=== PATIENT | female | born 1990 | race Caucasian/White ===

== ENCOUNTER 2016-08-15 21:49 | Inpatient (IN) | payer OTHER ==
[2016-08-16] MEDS ORDERED: Carboprost Tromethamine 250 MCG/1 ML Amp IM PRN (00:38)
[2016-08-16] MEDS ORDERED: Methylergonovine 0.2 MG/1 ML Amp IM PRN (00:38)
[2016-08-16] MEDS ORDERED: Lidocaine 1% 50 ML MDV INJECT PRN (00:38)
[2016-08-16] MEDS ORDERED: Sodium Chloride 0.9% 10 ML Syringe FLUSH PRN (00:38)
[2016-08-16] MEDS ORDERED: Butorphanol 1 MG/ML SDV IVPUSH PRN (00:38)
[2016-08-16] MEDS ORDERED: Nalbuphine 10 MG/1 ML Vial IVPUSH PRN (00:38)
[2016-08-16] MEDS ORDERED: Misoprostol 200 MCG Tab PO PRN (00:38)
[2016-08-16] MEDS ORDERED: Sodium Chloride 0.9% 2.5 ML Syringe FLUSH PRN (00:38)
[2016-08-16] MEDS ORDERED: Water For Irrigation,Sterile 1,000 ML Container IRR PRN (00:38)
[2016-08-16] MEDS ORDERED: Oxytocin/Lactated Ringers 30 UNIT/500 ML BAG IV SCH ×2 (00:45→05:00)
[2016-08-16] MEDS: Lactated Ringers 1,000 ML IV SCH ×4 (02:19→05:36)
[2016-08-16] MEDS ORDERED: Ropivacaine HCl/PF 100 ML ONE (03:54)
[2016-08-16] MEDS ORDERED: Ropivacaine 0.2% 2 MG/ML 20 ML SDV ONE (03:54)
[2016-08-16] MEDS ORDERED: fentaNYL 100 MCG/2 ML SDV ONE (03:54)
--- NOTE | 2016-08-16 04:45 | PCM.PREANE ---
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 Respiratory: Reports: no symptoms Cardiovascular: Reports: no symptoms GI: Reports: no symptoms Other: Reports: none - PHYSICAL ASSESSMENT Height: 1.72 m Weight: 78.471 kg NPO Status Date: 08/16/16 NPO Status Time: 04:40 ASA Class: 2 Mental Status: alert & oriented x3 Airway Class: Mallampati = 2 Dentition: Reports: normal dentition Thyro-Mental Finger Breadths: 3 Mouth Opening Finger Breadths: 3 (cl liquids) ROM/Head Extension: full Respiratory Status: lungs clear to auscultation bilaterally Cardiovascular Status: regular rate & rhythm, normal S1, S2, no murmur, blood pressure WNL - LAB Values: Laboratory Last Values WBC 12.33 K/uL (4.0-11.0) H 08/16/16 00:52 RBC 4.31 M/uL (4.30-5.90) 08/16/16 00:52 Hgb 13.3 g/dL (12.0-16.0) 08/16/16 00:52 Hct 39.3 % (36.0-46.0) 08/16/16 00:52 MCV 91.2 fL (80.0-98.0) 08/16/16 00:52 MCH 30.9 pg (27.0-32.0) 08/16/16 00:52 MCHC 33.8 g/dL (31.0-37.0) 08/16/16 00:52 RDW Std Deviation 42.8 fl (28.0-62.0) 08/16/16 00:52 RDW Coeff of Red 13 % (11.0-15.0) 08/16/16 00:52 Plt Count 178 K/uL (150-400) 08/16/16 00:52 MPV 10.70 fL (7.40-12.00) 08/16/16 00:52 Nucleated RBC % 0.0 /100WBC 08/16/16 00:52 Nucleated RBCs # 0 K/uL 08/16/16 00:52 Blood Type O POSITIVE 08/16/16 00:52 Antibody Screen NEGATIVE 08/16/16 00:52 - ALLERGIES Allergies/Adverse Reactions: Allergies Allergy/AdvReac Type Severity Reaction Status Date / Time No Known Allergies Allergy Verified 08/15/16 22:35 - BLOOD Blood Available: Yes Product(s) Available: PRBC - ANESTHESIA PLAN Anesthesia Type Planned: epidural - ACKNOWLEDGEMENTS Pt an appropriate candidate for the planned anesthesia: Yes Alternatives and risks of anesthesia discussed w pt/guardian: Yes Pt/Guardian understands and agree with anesthesia plan: Yes PreAnesthesia Questionnaire HEENT History: Reports: Impaired vision 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: , Spontaneous - CURRENT (IN HOUSE) MEDS Current Meds: Current Medications Butorphanol Tartrate (Stadol) 1 mg IVPUSH Q1H PRN PRN Reason: Pain Carboprost Tromethamine (Hemabate Ds) 250 mcg IM ASDIRECTED PRN PRN Reason: Post Hemorrhage Lactated Ringer's (Ringers, Lactated) 1,000 mls @ 150 mls/hr IV ASDIRECTED [facility] Last Admin: 08/16/16 02:53 Dose: 999 mls/hr Lidocaine HCl (Xylocaine 1%) 50 ml INJECT .ONCE PRN PRN Reason: Laceration repair Methylergonovine Maleate (Methergine) 0.2 mg IM ASDIRECTED PRN PRN Reason: Post Hemorrhage Misoprostol (Cytotec) 200 mcg PO .ONCE PRN PRN Reason: Post Hemorrhage Sodium Chloride (Saline Flush) 10 ml FLUSH ASDIRECTED PRN PRN Reason: Keep Vein Open Sodium Chloride (Saline Flush) 2.5 ml FLUSH ASDIRECTED PRN PRN Reason: Keep Vein Open Sterile Water (Sterile Water For Irrigation) 1,000 ml IRR ASDIRECTED PRN PRN Reason: delivery Discontinued Medications Fentanyl (Sublimaze) Confirm Administered Dose 300 mcg .ROUTE .STK-MED ONE Stop: 08/16/16 03:55 Oxytocin/Lactated Ringer's (Pitocin In Lr 30 Units/500 Ml) 30 unit in 500 mls @ 999 mls/hr IV TITRATE MARIA DEL CARMEN PRN Reason: 999 MUNITS/MIN Stop: 08/16/16 01:16 Ropivacaine (Naropin 0.2%) Confirm Administered Dose 100 mls @ as directed .ROUTE .STK-MED ONE Stop: 08/16/16 03:55 Nalbuphine HCl (Nubain) 10 mg IVPUSH Q1H PRN PRN Reason: Pain (severe 7-10) Stop: 08/16/16 02:39 Ropivacaine (Naropin 0.2%) Confirm Administered Dose 20 ml .ROUTE .STK-MED ONE Stop: 08/16/16 03:55 - Free Text/Narrative Note: Labor Analgesia/Epidural Procedure start date:08/16/16 time: 035 Attending provider aware Chart reviewed Permit signed Labs reviewed VS/FHR reviewed Pt identified/ID band Pt assessed Risks/Benefits discussed and accepted Monitors in place (BP, HR, SPO2) Patient, Site, Procedure Verification, Pause. Pain "8/10" Fluid bolus infused (fluid type and amount): 2000 ml LR Position: Sitting @ 0359 Prep: Betadine X 3 Sterile Drape Intradermal Wheal: 3 ml 1% Lidocaine Regional placement level: L4-5 Needle: 17 g Tuohy Approach: Midline Technique: SANCHEZ glass syringe with 3 ml Sterile water SANCHEZ needle depth: 5 cm Paresthesia: None Fluid Obtained: None Catheter insertion time: 0405 Catheter depth at skin: 20 cm Test Dose Time: 0406 RX: 3 ml 1.5% lidocaine with 1:200,000 epi Response: Negative Loading dose Time: 8117-4113 RX: 100 mcg fentanyl followed by 6 ml 0.2% ropivacaine given in 1 ml increments over 19 minutes Pt position: semi fowlers with BLAKE Continuous infusion Start Time: 0430 RX: 100 ml 0.2% ropvicaine with 200 mcg fentanyl added (2mcg/ml) Continuous infusion rate: 8 ml/hr CIVIL DRAFTING TECHNICIAN bolus option: 5 ml every 15 min. Pt response Post procedure pain level: VS and FHR monitored in unit post placement (See OB traceview for documentation. ) Procedure end date: 08/16/16 time: 0507
[2016-08-16] MEDS ORDERED: Terbutaline 1 MG/ML SDV SUBCUT PRN (04:52)
[2016-08-16] MEDS ORDERED: oxyCODONE 5 MG Tab PO PRN (08:47)
[2016-08-16] MEDS ORDERED: Lanolin 100% Cream 7 GM Tube TOP PRN (08:47)
[2016-08-16] MEDS ORDERED: Witch Hazel Medicated Pads 40/Jar TOP PRN (08:47)
[2016-08-16] MEDS ORDERED: Benzocaine/Menthol 20%-0.5% Spray 78 GM Cannister TOP PRN (08:47)
[2016-08-16] MEDS ORDERED: Docusate Sodium 100 MG Cap PO PRN (08:47)
[2016-08-16] MEDS ORDERED: Bisacodyl 10 MG Supp RECTAL PRN (08:47)
[2016-08-16] MEDS ORDERED: Acetaminophen 500 MG Tab PO PRN ×2 (08:47)
[2016-08-16] MEDS ORDERED: Ibuprofen 400 MG Tab PO PRN (08:47)
[2016-08-16] MEDS: Ibuprofen 800 MG Tab PO PRN ×2 (10:59→20:23)
--- NOTE | 2016-08-16 13:03 | OR ---
SURGEON: Gloria Wiggins MD DATE OF PROCEDURE: 08/16/2016 PREOPERATIVE DIAGNOSES: 1. Term at 38 weeks and 4 days. 2. Spontaneous labor. POSTOPERATIVE DIAGNOSIS: 1. Term at 38 weeks and 4 days. 2. Spontaneous labor. 3. Delivered. PROCEDURE: Spontaneous vaginal delivery. ANESTHESIA: Epidural. ESTIMATED BLOOD LOSS: 200 mL. COMPLICATIONS: None. DISPOSITION: Mother and baby stable in Labor and delivery room, bonding. FINDINGS: Male , weight pending, score 6 and 9 at 1 and 5 minutes respectively. Grossly normal placenta with 3-vessel cord. Intact perineum. BRIEF HISTORY: The patient is a 26-year-old, G3, P1, with an uncomplicated course. She presented overnight at 38 weeks and 3 days with complaints of regular contractions with increasing intensity throughout the day. Denied vaginal bleeding, leakage of fluid, and reported active fetus. GBS negative. She was evaluated in the clinic earlier in the day, at the time she was 2 cm dilated. When she was evaluated on admission at about 10 p.m. last night, she was 3 cm dilated. She was allowed to ambulate for about 2 hours, re-examined and found to be 5 cm dilated. The heart tracing was category 1. She received epidural for pain management. Artificial rupture of membranes was performed with slightly blood-tinged amniotic fluid. With no significant cervical change, 2 hours later, Oxytocin augmentation was commenced. She then progressed nicely to full dilatation and commenced active pushing. Pushing over 2 contractions, she brought the baby's head down to +5 station and was set up for vaginal delivery in dorsal lithotomy position. PROCEDURE IN DETAIL: She had a spontaneous vaginal delivery of a live male in direct occipital anterior position, clear amniotic fluid, no nuchal cord. Anterior and posterior shoulders and the rest of the baby were delivered without difficulty. Baby was vigorous and was delivered onto the maternal abdomen with the nursery nurse attending to him. The infant was noted to have poor respiratory effort so the cord was double clamped and cut by the father of the baby and he was transferred over to the warmer for further evaluation. Cord blood and gas samples were obtained. With delivery of the , oxytocin infusion, titration was commenced for active management of third stage of labor. Placenta was delivered by controlled cord traction, appeared to be complete and intact. Examination of the perineum revealed no lacerations. Uterine massage was performed and the uterus was found to be well contracted below the umbilicus. The patient tolerated the procedure well. Sponge, instrument, and needle counts were correct at the end of the delivery. The baby transitioned well and was in the room bonding with the mother, post delivery. NIKOLAYV / JOSE D /[id number] MTDD
--- NOTE | 2016-08-16 15:59 | PCM48HPAN ---
Post Anesthesia Note - EVALUATION WITHIN 48HRS OF ANESTHETIC Vital Signs in Normal Range: Yes Patient Participated in Evaluation: Yes Respiratory Function Stable: Yes Airway Patent: Yes Cardiovascular Function Stable: Yes Hydration Status Stable: Yes Pain Control Satisfactory: Yes Nausea and Vomiting Control Satisfactory: Yes Mental Status Recovered: Yes
[2016-08-17 09:37] VITALS: BP 110/62
--- NOTE | 2016-08-17 10:20 | PCM.PNPP ---
- General Info Date of Service: 08/17/16 Functional Status: Reports: pain controlled, tolerating diet, ambulating, urinating - Review of Systems General: Denies: fever, weakness, fatigue, chills Pulmonary: Denies: shortness of breath, pleuritic chest pain, cough Cardiovascular: Denies: chest pain, palpitations, dyspnea on exertion Gastrointestinal: Denies: Abdominal pain Genitourinary: Denies: dysuria, incontinence Neurological: Denies: confusion, headache Psychiatric: Denies: depression, mood lability, anxiety - General Info Date of Service: 08/17/16 - Patient Data Vital Signs - most recent: Last Vital Signs Temp 36.0 C 08/17/16 08:00 Pulse 60 08/17/16 08:00 Resp 16 08/17/16 08:00 BP 110/62 08/17/16 08:00 Pulse Ox 97 08/17/16 08:00 Weight - most recent: 173 lb Lab Results - last 24 hrs: Laboratory Results - last 24 hr 08/17/16 Range/Units 04:46 Hgb 11.6 L (12.0-16.0) g/dL Hct 35.2 L (36.0-46.0) % Med Orders - Current: Current Medications Acetaminophen (Tylenol Extra Strength) 500 mg PO Q4H PRN PRN Reason: Pain Last Admin: 08/16/16 15:03 Dose: 500 mg Acetaminophen (Tylenol Extra Strength) 1,000 mg PO Q4H PRN PRN Reason: Pain Last Admin: 08/17/16 06:15 Dose: 1,000 mg Benzocaine/Menthol (Dermoplast Pain Relief 20%-0.5% [place]) 78 gm TOP ASDIRECTED PRN PRN Reason: Perineal Comfort Measure Last Admin: 08/16/16 10:58 Dose: 1 can Bisacodyl (Dulcolax) 10 mg RECTAL .ONCE PRN PRN Reason: Constipation Docusate Sodium (Colace) 100 mg PO BID PRN PRN Reason: Constipation Emollient Ointment (Lansinoh Hpa) 0 gm TOP ASDIRECTED PRN PRN Reason: Sore Nipples Last Admin: 08/16/16 10:58 Dose: 1 tube Ibuprofen (Motrin) 400 mg PO Q4H PRN PRN Reason: Pain Ibuprofen (Motrin) 800 mg PO Q6H PRN PRN Reason: Pain Last Admin: 08/16/16 20:23 Dose: 800 mg Measles/Mumps/Rubella Vaccine Live (M-M-R Ii Vaccine) 0.5 ml SUBCUT .ONCE ONE Stop: 08/19/16 09:31 Oxycodone HCl (Oxycodone) 5 mg PO Q2H PRN PRN Reason: Pain Witch Vicenta (Tucks) 1 pad TOP ASDIRECTED PRN PRN Reason: comfort care Last Admin: 08/16/16 10:58 Dose: 1 tub Discontinued Medications Butorphanol Tartrate (Stadol) 1 mg IVPUSH Q1H PRN PRN Reason: Pain Carboprost Tromethamine (Hemabate Ds) 250 mcg IM ASDIRECTED PRN PRN Reason: Post Hemorrhage Fentanyl (Sublimaze) Confirm Administered Dose 300 mcg .ROUTE .STK-MED ONE Stop: 08/16/16 03:55 Last Admin: 08/16/16 09:29 Dose: Not Given Lactated Ringer's (Ringers, Lactated) 1,000 mls @ 150 mls/hr IV ASDIRECTED MARIA DEL CARMEN Last Admin: 08/16/16 05:36 Dose: 125 mls/hr Oxytocin/Lactated Ringer's (Pitocin In Lr 30 Units/500 Ml) 30 unit in 500 mls @ 999 mls/hr IV TITRATE MARIA DEL CARMEN PRN Reason: 999 MUNITS/MIN Stop: 08/16/16 01:16 Last Admin: 08/16/16 13:22 Dose: Not Given Ropivacaine (Naropin 0.2%) Confirm Administered Dose 100 mls @ as directed .ROUTE .STK-MED ONE Stop: 08/16/16 03:55 Last Admin: 08/16/16 09:29 Dose: Not Given Oxytocin/Lactated Ringer's (Pitocin In Lr 30 Units/500 Ml) 30 unit in 500 mls @ 2 mls/hr IV TITRATE MARIA DEL CARMEN; 2 MUNITS/MIN PRN Reason: Protocol Last Titration: 08/16/16 08:10 Dose: 999 mls/hr Lidocaine HCl (Xylocaine 1%) 50 ml INJECT .ONCE PRN PRN Reason: Laceration repair Methylergonovine Maleate (Methergine) 0.2 mg IM ASDIRECTED PRN PRN Reason: Post Hemorrhage Misoprostol (Cytotec) 200 mcg PO .ONCE PRN PRN Reason: Post Hemorrhage Nalbuphine HCl (Nubain) 10 mg IVPUSH Q1H PRN PRN Reason: Pain (severe 7-10) Stop: 08/16/16 02:39 Ropivacaine (Naropin 0.2%) Confirm Administered Dose 20 ml .ROUTE .STK-MED ONE Stop: 08/16/16 03:55 Last Admin: 08/16/16 09:29 Dose: Not Given Sodium Chloride (Saline Flush) 10 ml FLUSH ASDIRECTED PRN PRN Reason: Keep Vein Open Sodium Chloride (Saline Flush) 2.5 ml FLUSH ASDIRECTED PRN PRN Reason: Keep Vein Open Sterile Water (Sterile Water For Irrigation) 1,000 ml IRR ASDIRECTED PRN PRN Reason: delivery Terbutaline Sulfate (Brethine) 0.25 mg SUBCUT ASDIRECTED PRN PRN Reason: Tacysystole - Infant Interaction Infant Disposition, : in Room with Family Infant Feeding: Breastfed Infant; Nursed Well, Continues to Breastfeed Support Person: - Recovery Exam Fundal Tone: Firm Fundal Level: 1 Fingerbreadths Below Umbilicus Fundal Placement: Midline Lochia Amount: Scant Lochia Color: Rubra/Red Perineum Description: Intact, Minimal Bruising/Swelling Episiotomy/Laceration: None Bladder Status: Voiding Urinary Elimination: Voided - Exam General: alert, oriented HEENT: Pupils equal Lungs: Clear to auscultation, Normal respiratory effort Cardiovascular: regular rate, regular rhythm Abdomen: bowel sounds present, soft, no tenderness, no distension Extremities: no calf tenderness, edema Skin: warm Psy/Mental Status: alert, normal affect, normal mood - Problem List & Annotations (1) Vaginal delivery SNOMED Code(s): 244580723 Code(s): O80 - ENCOUNTER FOR FULL-TERM UNCOMPLICATED DELIVERY Status: Acute Current Visit: Yes - Problem List Review Problem List Initiated/Reviewed/Updated: Yes - My Orders Last 24 Hours: My Active Orders 08/16/16 Lunch Regular Diet [DIET] 08/19/16 09:30 Measles, Mumps & Rubella [M-M-R II Vaccine] 0.5 ml SUBCUT .ONCE ONE - Assessment Assessment:: PPD#1 s/p , stable and afebrile - Plan Plan:: Discharge instructions reviewed Continue PNV Nothing in the vagina fro 6 weeks Bleeding and infection precautions reviewed Follow up in 6 weeks
[2016-08-17] MEDS ORDERED: Measles, Mumps & Rubella Vaccine 0.5 ML SDV SUBCUT ONE (11:40)
== END 2016-08-17 13:03 | disposition home or self-care (01) | DRG 775 ==
LOC: MW.OBCHECK 21:49 → MW.OB 22:34 → MW.OBCHECK 08-16 00:38 → MW.OB 08-16 00:38 → OBSVTOIN 08-16 08:10 → MW.OB 08-16 14:59
PROVIDERS: ADMIT Obstetrics & Gynecology; ATTEND Obstetrics & Gynecology
PROC: 10E0XZZ Delivery of Products of Conception, External Approach (ICD-10-PCS; principal; 2016-08-16)
PROC: 10907ZC Drainage of Amniotic Fluid, Therapeutic from Products of Conception, Via Natural or Artificial Opening (ICD-10-PCS; 2016-08-16)
DX: O80 Encounter for full-term uncomplicated delivery (principal); Z3A.38 38 weeks gestation of pregnancy; Z37.0 Single live birth
CPT/HCPCS: 01967; 36415; 59025; 85014; 85018; 85027; 86850; 86900; 86901; 90707; A9270-GY; J2795; J3010; J7120